=== PATIENT | male | born 1950 | race Caucasian/White ===

== ENCOUNTER 2022-10-08 07:29 | Day surgery (SDC) | payer MEDICARE, OTHER ==
[~2022-10-08 07:29] MED LIST: Midazolam 1 MG/ML 2 ML SDV ONE; Propofol 200 MG/20 ML SDV ONE; fentaNYL 50 MCG/ML SDV ONE
[2022-10-08] MEDS ORDERED: Lactated Ringers 1,000 ML IV SCH (08:00)
== END 2022-10-08 10:20 | disposition home or self-care (01) ==
LOC: JP.SDS 07:29
PROVIDERS: ATTEND Student in an Organized Health Care Education/Training Program
DX: Z12.11 Encounter for screening for malignant neoplasm of colon (principal); K63.5 Polyp of colon; Z79.899 Other long term (current) drug therapy; Z91.018 Allergy to other foods
CPT/HCPCS: J2250; J2704; J3010; J7120

== ENCOUNTER 2022-10-22 07:29 | Day surgery (SDC) | payer MEDICARE, OTHER ==
[~2022-10-22 07:29] MED LIST changes: +fentaNYL 100 MCG/2 ML SDV ONE; -fentaNYL 50 MCG/ML SDV ONE
[2022-10-22] MEDS ORDERED: Lactated Ringers 1,000 ML IV SCH (08:00)
[2022-10-22] MEDS ORDERED: Propofol 200 MG/20 ML SDV ONE (09:43)
[2022-10-22] MEDS ORDERED: Rocuronium 50 MG/5 ML Vial ONE (09:43)
== END 2022-10-22 11:27 | disposition home or self-care (01) ==
LOC: JP.SDS 07:29
PROVIDERS: ATTEND Student in an Organized Health Care Education/Training Program
DX: Z12.11 Encounter for screening for malignant neoplasm of colon (principal); D12.2 Benign neoplasm of ascending colon; K57.30 Diverticulosis of large intestine without perforation or abscess without bleeding; E78.5 Hyperlipidemia, unspecified; E11.9 Type 2 diabetes mellitus without complications; Z86.010 Personal history of colon polyps; Z79.899 Other long term (current) drug therapy; Z91.018 Allergy to other foods
CPT/HCPCS: 45380; 88305; J2250; J2704; J3010; J7120; J3490